=== PATIENT | male | born 1960 | race Caucasian/White ===

== ENCOUNTER 2018-06-15 09:17 | Emergency (ER) | payer SELFPAY ==
[2018-06-15] MEDS ORDERED: Sodium Chloride 0.9% 10 ML Syringe FLUSH PRN (09:29)
[2018-06-15] MEDS ORDERED: HYDROmorphone 0.5 MG/0.5 ML SYRINGE IVPUSH ONE (09:30)
--- NOTE | 2018-06-15 09:55 | EDM.PDOC ---
ED HPI GENERAL MEDICAL PROBLEM - General Chief Complaint: Chest Pain Stated Complaint: CHEST PAIN Time Seen by Provider: 06/15/18 09:23 Source of Information: Reports: Patient, EMS History Limitations: Reports: No Limitations - History of Present Illness INITIAL COMMENTS - FREE TEXT/NARRATIVE: The patient presents by [facility] for chest pain. This stared yesterday and this morning it was worse. The pain is sharp and it hurts worse to take a deep breath. He has no fever, chills, cough, abdominal pain, nausea or vomiting. He has a history of pleurisy. He has been seen many times for this and his heart always checks out fine. He went to the [facility] and they called the ambulance and they did a EKG. On their EKG he did have some slight ST elevation in the inferior leads. He was given aspirin and fentanyl. He did take a percocet at home. He does smoke. He has no history of coronary artery disease, hypertension, hypercholesterolemia, or diabetes. The pain is better at a 3 or 4 now. Onset: Gradual Duration: Day(s): (2) Location: Reports: Chest Quality: Reports: Sharp Severity: Moderate Improves with: Reports: None Worsens with: Reports: None Associated Symptoms: Reports: Chest Pain. Denies: Fever/Chills, Headaches, Nausea/Vomiting, Shortness of Breath Treatments [employer]: Reports: Aspirin, Other (see below) Other Treatments [employer]: fentanyl Chest Pain Score (Numeric/FACES): 3 - Related Data Allergies Allergy/AdvReac Type Severity Reaction Status Date / Time No Known Allergies Allergy Verified 06/15/18 09:20 Home Meds: Home Meds . [No Known Home Meds] 06/15/18 [History] Past Medical History - Past Health History Medical/Surgical History: Denies Medical/Surgical History Social & Family History - Tobacco Use Smoking Status *Q: Current Every Day Smoker Years of Tobacco use: 35 Packs/Tins Daily: 2 - Recreational Drug Use Recreational Drug Use: Yes Drug Use in Last 12 Months: No ED ROS GENERAL - Review of Systems Review Of Systems: See Below Constitutional: Reports: No Symptoms HEENT: Reports: No Symptoms Respiratory: Reports: No Symptoms Cardiovascular: Reports: Chest Pain Endocrine: Reports: No Symptoms GI/Abdominal: Reports: No Symptoms : Reports: No Symptoms Musculoskeletal: Reports: No Symptoms ED EXAM, GENERAL - Physical Exam Exam: See Below Exam Limited By: No Limitations General Appearance: Alert, No Apparent Distress Ears: Normal External Exam Nose: Normal Inspection Head: Atraumatic, Normocephalic Neck: Normal Inspection Respiratory/Chest: No Respiratory Distress, Lungs Clear, Normal Breath Sounds Cardiovascular: Regular Rate, Rhythm, No Edema, No Murmur GI/Abdominal: Soft, Non-Tender, No Organomegaly, No Mass Back Exam: Normal Inspection Extremities: Normal Inspection Neurological: Alert, Oriented, No Motor/Sensory Deficits EKG INTERPRETATION EKG Date: 06/15/18 Time: 09:17 Rhythm: NSR Rate (Beats/Min): 69 Happy: Normal P-Wave: Present QRS: Normal ST-T: Normal QT: Normal Course - Vital Signs Last Recorded V/S: Last Vital Signs Temp 97.9 F 06/15/18 10:03 Pulse 76 06/15/18 10:03 Resp 18 06/15/18 10:03 BP 125/80 06/15/18 10:03 Pulse Ox 96 06/15/18 10:03 - Orders/Labs/Meds Orders: Active Orders 24 hr Category Date Time Status Cardiac Monitoring [RC] . DIRECTED Care 06/15/18 09:29 Active EKG Documentation Completion [RC] STAT Care 06/15/18 09:30 Active Oxygen Therapy [RC] PRN Care 06/15/18 09:29 Active Peripheral IV Care [RC] . DIRECTED Care 06/15/18 09:30 Active TROPONIN I [CHEM] Stat Lab 06/15/18 10:57 Received Sodium Chloride 0.9% [Saline Flush] Med 06/15/18 09:29 Active 10 ml FLUSH ASDIRECTED PRN Peripheral IV Insertion Adult [OM.PC] Stat Oth 06/15/18 09:29 Ordered Medication Orders Sodium Chloride (Saline Flush) 10 ml FLUSH ASDIRECTED PRN PRN Reason: Keep Vein Open Last Admin: 06/15/18 09:44 Dose: 10 ml Labs: Laboratory Tests 06/15/18 06/15/18 06/15/18 Range/Units 09:34 09:34 09:34 WBC 5.98 (4.23-9.07) K/mm3 RBC 4.83 (4.63-6.08) M/mm3 Hgb 15.3 (13.7-17.5) gm/L Hct 44.6 (40.1-51.0) % MCV 92.3 H (79.0-92.2) fl MCH 31.7 (25.7-32.2) pg MCHC 34.3 (32.2-35.5) g/dl RDW Std Deviation 46.4 H (35.1-43.9) fL Plt Count 222 (163-337) K/mm3 MPV 9.0 L (9.4-12.3) fl Neut % (Auto) 61.0 (34.0-67.9) % Lymph % (Auto) 24.9 (21.8-53.1) % [place] % (Auto) 10.9 (5.3-12.2) % Eos % (Auto) 2.5 (0.8-7.0) Baso % (Auto) 0.5 (0.1-1.2) % Neut # (Auto) 3.65 (1.78-5.38) K/mm3 Lymph # (Auto) 1.49 (1.32-3.57) K/mm3 [place] # (Auto) 0.65 (0.30-0.82) K/mm3 Eos # (Auto) 0.15 (0.04-0.54) K/mm3 Baso # (Auto) 0.03 (0.01-0.08) K/mm3 D-Dimer, Quantitative 0.22 (0.19-0.50) mg/L Sodium 139 (136-145) mEq/L Potassium 4.3 (3.5-5.1) mEq/L Chloride 105 (98-107) mEq/L Carbon Dioxide 25 (21-32) mEq/L Anion Gap 13.3 (5-15) BUN 14 (7-18) mg/dL Creatinine 0.9 (0.7-1.3) mg/dL Est Cr Clr Drug Dosing 89.72 mL/min Estimated GFR (MDRD) > 60 (>60) mL/min BUN/Creatinine Ratio 15.6 (14-18) Glucose 112 H (74-106) mg/dL Calcium 9.0 (8.5-10.1) mg/dL Total Bilirubin 0.7 (0.2-1.0) mg/dL AST 44 H (15-37) U/L ALT 67 H (16-63) U/L Alkaline Phosphatase 97 (46-116) U/L Troponin I < 0.017 (0.00-0.056) ng/mL Total Protein 7.4 (6.4-8.2) g/dl Albumin 3.7 (3.4-5.0) g/dl Globulin 3.7 gm/dL Albumin/Globulin Ratio 1.0 (1-2) Meds: Medications Generic Name Dose Route Start Last Admin Trade Name Freq PRN Reason Stop Dose Admin Sodium Chloride 10 ml 06/15/18 09:29 06/15/18 09:44 Saline Flush FLUSH 10 ml ASDIRECTED PRN Administration Keep Vein Open Discontinued Medications Generic Name Dose Route Start Last Admin Trade Name Freq PRN Reason Stop Dose Admin Hydromorphone HCl 0.5 mg 06/15/18 09:30 06/15/18 09:37 Dilaudid IVPUSH 06/15/18 09:31 0.5 mg ONETIME ONE Administration - Re-Assessments/Exams Free Text/Narrative Re-Assessment/Exam: 06/15/18 09:56 I ordered an IV saline lock, EKG, CXR, labs an a dose of dilaudid 0.5mg IV. 06/15/18 11:03 His EKG shows a NSR with no acute changes. His CXR looks good. His CBC looks good. His liver enzymes are slightly elevated. His troponin is negative. He feels better. I feel this is pleurisy. I want him to wait 3 hours for a repeat troponin but he needs to go. I will draw it now and call him the results. Departure - Departure Time of Disposition: 11:05 Disposition: Home, Self-Care 01 Condition: Good Clinical Impression: Pleurisy Referrals: PCP,Unknown [Primary Care Provider] - Noreen Mcintosh PA [Physician Ophthalmic Tech] - 1 Week Forms: ED Department Discharge Additional Instructions: Take aspirin or motrin for the pain. Please return if you are worse. - My Orders Last 24 Hours: My Active Orders 06/15/18 09:29 Cardiac Monitoring [RC] . DIRECTED Oxygen Therapy [RC] PRN Sodium Chloride 0.9% [Saline Flush] 10 ml FLUSH ASDIRECTED PRN Peripheral IV Insertion Adult [OM.PC] Stat 06/15/18 09:30 EKG Documentation Completion [RC] STAT Peripheral IV Care [RC] . DIRECTED 06/15/18 10:57 TROPONIN I [CHEM] Stat - Assessment/Plan Last 24 Hours: My Active Orders 06/15/18 09:29 Cardiac Monitoring [RC] . DIRECTED Oxygen Therapy [RC] PRN Sodium Chloride 0.9% [Saline Flush] 10 ml FLUSH ASDIRECTED PRN Peripheral IV Insertion Adult [OM.PC] Stat 06/15/18 09:30 EKG Documentation Completion [RC] STAT Peripheral IV Care [RC] . DIRECTED 06/15/18 10:57 TROPONIN I [CHEM] Stat
--- NOTE | 2018-06-15 10:39 | CR ---
Chest: Portable view of the chest was obtained. Comparison: No prior chest x-ray. Heart size and mediastinum are normal. Lungs are clear. Scattered degenerative spurring is noted within the spine. Impression: 1. Nothing acute is seen on portable chest x-ray. Diagnostic code #2
== END 2018-06-15 11:15 | disposition home or self-care (01) ==
LOC: JD.ED 09:17
DX: R09.1 Pleurisy (principal); F17.210 Nicotine dependence, cigarettes, uncomplicated
CPT/HCPCS: 36415; 71045; 80053; 84484; 85025; 85379; 93005; 96374; 99285; J1170; J7050

== ENCOUNTER 2025-06-08 09:22 | Inpatient (IN) | payer OTHER ==
[2025-06-08] MEDS: Furosemide 40 MG/4 ML VIAL IVPUSH ONE (09:59)
[2025-06-08 10:18] LABS: BASOPHILS ABSOLUTE AUTO 0.1 K/mm3 (0.0-0.2); BASOPHILS PERCENT AUTO 0.8 % (0.0-1.0); EOSINOPHILS ABSOLUTE AUTO 0.2 K/mm3 (0.0-0.4); EOSINOPHILS PERCENT AUTO 2.5 % (0.0-6.0); IMMATURE GRAN ABSOLUTE AUTO 0.02 K/mm3 (0.00-0.05); IMMATURE GRAN PERCENT AUTO 0.3 % (0.0-0.4); LYMPHOCYTES ABSOLUTE AUTO 1.7 K/mm3 (1.0-4.8); LYMPHOCYTES PERCENT AUTO 27.7 % (24.0-44.0); MEAN PLATELET VOLUME 10.8 fl (9.4-12.4); MONOCYTES ABSOLUTE AUTO 0.7 K/mm3 (0.0-0.8); MONOCYTES PERCENT AUTO 11.8 % (0.0-8.0); NEUTROPHILS ABSOLUTE AUTO 3.6 K/mm3 (1.8-7.7); NEUTROPHILS PERCENT AUTO 56.9 % (41.0-71.0); NRBC ABSOLUTE 0.00 (0.00-0.02); NRBC PERCENT 0.0 % (0.0-0.2); PLATELET COUNT,PLT 72 K/mm3 (150-400); RED BLOOD CELL COUNT 3.70 M/mm3 (4.52-5.90); WHITE BLOOD CELL COUNT,WBC 6.29 K/mm3 (3.9-11.3)
[2025-06-08 10:35] LABS: INR 1.45
[2025-06-08 10:42] LABS: A/G RATIO 0.5 (1-2); ALANINE AMINOTRANSFERASE,ALT 40.0 U/L (16-63); ASPARTATE AMNIOTRANSFERASE,AST 86.0 U/L (15-37); BILIRUBIN TOTAL 3.5 mg/dL (0.2-1.0); BLOOD UREA NITROGEN,BUN 12.0 mg/dL (7-18); CARBON DIOXIDE,CO2 26.0 mEq/L (21-32); CHLORIDE,CL 105.0 mEq/L (98-107); CREATINE KINASE,CK 200.0 U/L (39-308); CREATININE 0.8 mg/dL (0.7-1.3); EST CRCL DRUG DOSING (CG) 92.63 mL/min; ESTIMATED GFR 100.0 mL/min (>60); GLUCOSE RANDOM 92.0 mg/dL (70-99); POTASSIUM,K 4.1 mEq/L (3.5-5.1); PROTEIN TOTAL,TP 7.0 g/dl (6.4-8.2); SODIUM,NA 137.0 mEq/L (136-145); TROPONIN I HIGH SENSITIVITY 13.0 pg/mL (<=76)
[2025-06-08 11:23] LABS: BODY FLUID TYPE PERITONEAL FLUID
[2025-06-08 11:56] LABS: GLUCOSE,BODY FLUID 107 mg/dL
[2025-06-08 11:59] LABS: PROTEIN,BODY FLUID < 2.0 gm/dl
[2025-06-08 12:40] LABS: COLOR,BODY FLUID YELLOW; SITE,BODY FLUID PERITONEAL; VOLUME BODY FLUID 18 ML
[2025-06-08 12:41] LABS: APPEARANCE,BODY FLUID CLEAR; WBC BODY FLUID 57 /uL (0-0)
[2025-06-08 12:42] LABS: MONONUCLEAR, BODY FLUID 84.0 % (0.0-0.0); POLYMORPHONUCLEAR, BODY FLUID 16.0 % (0.0-0.0)
[2025-06-08 13:18] LABS: BODY FLUID TYPE PERITONEAL FLUID
[2025-06-08 14:08] LABS: LACTATE DEHYDROGENASE,BODY FL 64 U/L
[2025-06-08 15:39] LABS: BUPRENORPHINE SCREEN,URINE NEGATIVE (CUTOFF=10); METHADONE SCREEN, URINE NEGATIVE (CUT0FF=200); METHAMPHETAMINES SCREEN, URINE NEGATIVE (CUTOFF=500); OXYCODONE SCREEN,URINE NEGATIVE (CUT0FF=100); THC SCREEN,URINE 20 NG/ML NEGATIVE (CUTOFF=50)
[2025-06-08 16:31] LABS: AMPHETAMINES SCREEN, URINE NEGATIVE (CUTOFF=500)
[2025-06-09 04:58] LABS: BASOPHILS ABSOLUTE AUTO 0.0 K/mm3 (0.0-0.2); BASOPHILS PERCENT AUTO 0.4 % (0.0-1.0); EOSINOPHILS ABSOLUTE AUTO 0.1 K/mm3 (0.0-0.4); EOSINOPHILS PERCENT AUTO 2.6 % (0.0-6.0); IMMATURE GRAN ABSOLUTE AUTO 0.01 K/mm3 (0.00-0.05); IMMATURE GRAN PERCENT AUTO 0.2 % (0.0-0.4); LYMPHOCYTES ABSOLUTE AUTO 2.1 K/mm3 (1.0-4.8); LYMPHOCYTES PERCENT AUTO 40.5 % (24.0-44.0); MEAN PLATELET VOLUME 10.7 fl (9.4-12.4); MONOCYTES ABSOLUTE AUTO 0.6 K/mm3 (0.0-0.8); MONOCYTES PERCENT AUTO 12.1 % (0.0-8.0); NEUTROPHILS ABSOLUTE AUTO 2.3 K/mm3 (1.8-7.7); NEUTROPHILS PERCENT AUTO 44.2 % (41.0-71.0); NRBC ABSOLUTE 0.00 (0.00-0.02); NRBC PERCENT 0.0 % (0.0-0.2); PLATELET COUNT,PLT 56 K/mm3 (150-400); RED BLOOD CELL COUNT 2.84 M/mm3 (4.52-5.90); WHITE BLOOD CELL COUNT,WBC 5.29 K/mm3 (3.9-11.3)
[2025-06-09 05:04] LABS: INR 1.76
[2025-06-09 05:16] LABS: A/G RATIO 0.9 (1-2); ALANINE AMINOTRANSFERASE,ALT 24.0 U/L (16-63); ASPARTATE AMNIOTRANSFERASE,AST 52.0 U/L (15-37); BILIRUBIN TOTAL 3.9 mg/dL (0.2-1.0); BLOOD UREA NITROGEN,BUN 12.0 mg/dL (7-18); CARBON DIOXIDE,CO2 29.0 mEq/L (21-32); CHLORIDE,CL 108.0 mEq/L (98-107); CREATININE 0.7 mg/dL (0.7-1.3); EST CRCL DRUG DOSING (CG) 105.86 mL/min; ESTIMATED GFR 104.0 mL/min (>60); GLUCOSE RANDOM 70.0 mg/dL (70-99); PHOSPHORUS 3.6 mg/dL (2.6-4.7); POTASSIUM,K 4.2 mEq/L (3.5-5.1); PROTEIN TOTAL,TP 5.4 g/dl (6.4-8.2); SODIUM,NA 139.0 mEq/L (136-145)
[2025-06-09] MEDS: Magnesium Sulf/Wat 4 GM/50 mL 4 GM in Premix Bag 1 BAG IV ONE (08:09)
[2025-06-09] MEDS: Furosemide 40 MG/4 ML VIAL IVPUSH ONE (08:09)
== END 2025-06-09 15:05 | disposition home or self-care (01) | DRG 434 ==
LOC: JD.ED 09:22 → JD.MS 12:51
PROVIDERS: ADMIT Student in an Organized Health Care Education/Training Program; ATTEND Student in an Organized Health Care Education/Training Program
PROC: 0W9G3ZZ Drainage of Peritoneal Cavity, Percutaneous Approach (ICD-10-PCS; principal; 2025-06-08)
DX: K70.31 Alcoholic cirrhosis of liver with ascites (principal); E83.42 Hypomagnesemia; D69.6 Thrombocytopenia, unspecified; F17.210 Nicotine dependence, cigarettes, uncomplicated; Z88.8 Allergy status to other drugs, medicaments and biological substances; Z98.890 Other specified postprocedural states; F10.11 Alcohol abuse, in remission
CPT/HCPCS: 36415; 71045; 71045-26; 76705; 76705-26; 80053; 80306; 80307; 82042; 82140; 82550; 82945; 83605; 83615; 83690; 83735; 83880; 84100; 84157; 84478; 84484; 85025; 85610; 87040; 89050; 93005; 93010; 96365; 96375; 99285; 99285-25; A9270-GY; J1650; J1938; J3475; P9047